=== PATIENT | male | born 1990 | race Caucasian/White ===

== ENCOUNTER 2016-09-28 20:52 | Emergency (ER) | payer MEDICAID ==
[~2016-09-28] VITALS: Ht 170.2 cm; Wt 122.4 kg
[~2016-09-28 20:52] MED LIST: OXYC-360 PO; Z.0.NO CURRENT MEDS
[2016-09-28 21:15] VITALS: BP 141/96; PULSE 93; RESP 20; O2SAT 96
[2016-09-28] MEDS ORDERED: MEDR4PAK PO (21:44)
[2016-09-28] MEDS ORDERED: BACT800T5 PO (21:44)
[2016-09-28] MEDS ORDERED: oxyCODONE/ACETAMINOPHEN 5 MG/325 MG TAB PO ONE (21:45)
[2016-09-28] MEDS ORDERED: SULFAMETHOXAZOLE-TRIMETHOPRIM DS 800-160 MG TAB PO ONE (21:45)
[2016-09-28] MEDS ORDERED: predniSONE 20 MG TAB PO ONE (21:45)
--- NOTE | 2016-09-28 21:49 | PD ---
HPI Chief Complaint: Musculoskeletal Complaint Time Seen by Provider: 21:27 Travel History International Travel<30 days: No Contact w/Intl Traveler<30days: No Traveled to known affect area: No History of Present Illness HPI This 25-year-old male is complaining of pain and swelling in his left knee. He' s been having pain and swelling in different joints off and on for about 2 years. 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 He went to an orthopedist that they did not find anything wrong with him. He has not had fever or chills. He also has a small swollen area there is right axilla. There has not been any fever PFSH Past Medical History Asthma: Yes Bipolar Disorder: Yes Depression: Yes Cancer: No Diabetes: No Diminished Hearing: No GERD: Yes Headaches: Yes Hypertension: Yes Psychiatric: Yes Migraines: Yes Schizophrenia: Yes Seizures: No Thyroid Disease: No Ulcer: No Past Surgical History Other Surgery: Yes (fx lt arm 6 yrs ago) Social History Alcohol Use: No Tobacco Use: No Substance Use: No Allergies-Medications (Allergen,Severity, Reaction): Coded Allergies: Contrast Media (Verified Allergy, Severe, ITCHING, SCRATCHY THROAT, FLUSHED SKIN, 11/13/11) Dilaudid (Verified Allergy, Severe, ITCHING, 11/13/11) Erythromycin (Verified Allergy, Severe, HIVES, RESPIRATORY DISTRESS, ) Lortab (Verified Allergy, Severe, Hives, 11/13/11) Reported Meds & Prescriptions Reported Meds & Active Scripts Active Bactrim DS (Sulfamethoxazole-Trimethoprim) 800-160 Mg Tab 1 Tab PO BID Medrol Dosepak (Methylprednisolone) 4 Mg Dspk 4 Mg PO DIRECTED Per Pharmacist direction Percocet (Oxycodone/Acetaminophen) 5 Mg/325 Mg Tab 1 Tab PO QIDPRN FOR PAIN Reported No Current Meds (Miscellaneous Medication) Misc Review of Systems General / Constitutional: No: Fever, Chills Eyes: No: Diploplia HENT: No: Headaches, Vertigo Cardiovascular: No: Chest Pain or Discomfort Respiratory: Positive: Cough Gastrointestinal: No: Nausea, Vomiting Genitourinary: No: Frequency, Dysuria Musculoskeletal: Positive: Myalgias, Arthralgias, Pain, No: Limited ROM Skin: No Itching, No Dryness Neurologic: No: Weakness Hematologic/Lymphatic: No: Easy Bruising Physical Exam Narrative GENERAL: Elderly male SKIN: Warm and dry. There is a small lump under the right axilla may be a small lymph node and early abscess HEAD: Atraumatic. Normocephalic. EYES: Pupils equal and round. No scleral icterus. No injection or drainage. ENT: No nasal bleeding or discharge. Mucous membranes pink and moist. NECK: Trachea midline. No JVD. CARDIOVASCULAR: Regular rate and rhythm. No murmur appreciated. RESPIRATORY: No accessory muscle use. Clear to auscultation. Breath sounds equal bilaterally. GASTROINTESTINAL: Abdomen soft, non-tender, nondistended. Hepatic and splenic margins not palpable. MUSCULOSKELETAL: No obvious deformities. No clubbing. No cyanosis. No edema. There is an effusion in the right knee. It is not red or warm NEUROLOGICAL: Awake and alert. No obvious cranial nerve deficits. Motor grossly within normal limits. Normal speech. PSYCHIATRIC: Appropriate mood and affect; insight and judgment normal. Data Data Last Documented VS Vital Signs Date Time Temp Pulse Resp B/P Pulse Ox O2 Delivery O2 Flow Rate FiO2 09/28/16 21:15 93 20 141/96 96 Orders Oxycodone-Acetamin 5-325 Mg (Percocet (09/28/16 21:45) Sulfamet-Trimeth Ds 800-160 Mg (Bactrim (09/28/16 21:45) Prednisone (Deltasone) (09/28/16 21:45) MDM Medical Decision Making Medical Screen Exam Complete: Yes Emergency Medical Condition: Yes Medical Record Reviewed: Yes Differential Diagnosis Differential includes lupus, rheumatoid arthritis, Narrative Course Patient describes migratory arthritis. I told him he needs to follow-up with a cvor nurse. He will be given a brief course of prednisone. Diagnosis Primary Impression: migratory arthriti Scripts Sulfamethoxazole-Trimethoprim (Bactrim DS)800-160 Mg Tab1 Tab PO BID #14 TAB Ref 0 Prov:Slava Arambula MD 09/28/16 Methylprednisolone Dosepak (Medrol Dosepak)4 Mg Dspk4 Mg PO DIRECTED #1 DSPK Ref 0 Per Pharmacist direction Prov:Slava Arambula MD 09/28/16 Disposition: 01 DISCHARGE HOME Condition: Stable Slava Arambula MD Sep 28, 2016 21:49
[2016-09-28 21:55] VITALS: BP 145/74; PULSE 90; RESP 18; O2SAT 97
== END 2016-09-28 22:44 | disposition home or self-care (01) ==
LOC: PHED 20:52
DX: M13.862 Other specified arthritis, left knee (principal)
CPT/HCPCS: 99283; J7512